=== PATIENT | male | born 1935 | race American Indian/Alaskan Native ===

== ENCOUNTER 2016-12-04 19:55 | Emergency (ER) | payer MEDICARE, OTHER ==
--- NOTE | 2016-12-04 20:16 | Emergency Department Report ---
ED CPR HPI - General Stated Complaint: CARDIAC ARREST Time Seen by Provider: 12/04/16 20:09 Source: EMS Mode of arrival: Stretcher - History of Present Illness Initial Comments: Patient is a 81 years old male brought in by EMS in a cardiac arrest CPR in progress, per EMS report patient was found unresponsive approximately 45 minutes before ER arrival, by his family member started CPR, EMS stated that initial visit was asystole patient intubated at the scene and ACLS protocol was followed patient received 4 mg of epinephrine and one ampoule of sodium bicarbonate, patient remained in asystole. Upon arrival to the ER ET tube placement was checked and confirmed with breath sounds on both sides, CPR continued patient receive another dose of sodium bicarbonate, ACLS protocol continued patient remained in asystole, patient pronounced at 20:07. Family notified. Complaint: found unresponsive Onset/Timin -: minute(s) Place: home Bystander CPR Performed: Yes (FAMILY MEMBER) AED Applied by Bystander/Broach Trouble Shooter: Yes Shock Advised: No Downtime Before ACLS Arrival (mins): 30 Initial Findings in the Field: no pulse Associated Injuries: No Treatments Prior to Arrival: intubation, epinephrine mgs # (4 MG) - Related Data Allergies Allergy/AdvReac Type Severity Reaction Status Date / Time No Known Allergies Allergy Unverified 12/12/12 09:11 ED Review of Systems ROS: Stated complaint: CARDIAC ARREST Other details as noted in HPI Comment: Unobtainable due to pts medical conditions ED Physical Exam - Head Head exam: Present: atraumatic, normocephalic - Eye Pupils: Present: other (4 mm fixed and dilated and unreactive) - Respiratory Respiratory exam: Present: other (intubated) - Cardiovascular Cardiovascular Exam: Present: other (no heart sounds) - GI/Abdominal GI/Abdominal exam: Present: soft Critical Care Time: Yes Critical care time in (mins) excluding proc time.: 31 Critical care attestation.: If time is entered above; I have spent that time in minutes in the direct care of this critically ill patient, excluding procedure time. ED Disposition Clinical Impression: Cardiac arrest Disposition: DC-20 Is pt being admited?: No Condition: Stable
[2016-12-04] MEDS ORDERED: ADRENALIN ONE (23:50)
[2016-12-04] MEDS ORDERED: SODIUM BICARBONATE IV ONE (23:50)
== END 2016-12-04 22:45 ==
LOC: ED 19:55
DX: I46.9 Cardiac arrest, cause unspecified (principal)
CPT/HCPCS: 99291; J0171